=== PATIENT | male | born 1990 | race Caucasian/White ===

== ENCOUNTER 2016-10-10 12:08 | Emergency (ER) | payer OTHER ==
[2016-10-10 12:14] VITALS: BP 147/100
[2016-10-10] MEDS ORDERED: OXYCODONE-ACETAMINOPHEN 5-325 MG TABLET PO ONE (14:12)
--- NOTE | 2016-10-10 14:13 | ER Document Report ---
ED Medical Screen (RME) - General Chief Complaint: Testicular Pain Stated Complaint: GROIN PAIN Time Seen by Provider: 10/10/16 14:12 Mode of Arrival: Ambulatory Information source: Patient TRAVEL OUTSIDE OF THE [place] IN LAST 30 DAYS: No - HPI Patient complains to provider of: Left Testicle pain and swelling Notes: 10/10/16 14:13 Patient is a 26-year-old male who presents to the emergency room complaining of left-sided testicular pain and swelling of 3 days, he denies any dysuria, no penile discharge, no fevers, no injury, no history of similar symptoms previously - Related Data Allergies/Adverse Reactions: No Known Allergies Allergy (Verified 10/10/16 12:11) Past Medical History Renal/ Medical History: Denies: Hx Peritoneal Dialysis Physical Exam - Vital signs Vitals: Temp Pulse Resp BP Pulse Ox 98.1 F 99 16 147/100 H 99 10/10/16 12:11 10/10/16 12:11 10/10/16 12:11 10/10/16 12:11 10/10/16 12:11 Course - Vital Signs Vital signs: Temp Pulse Resp BP Pulse Ox 98.1 F 99 16 147/100 H 99 10/10/16 12:11 10/10/16 12:11 10/10/16 12:11 10/10/16 12:11 10/10/16 12:11
[2016-10-10 14:50] LABS: APPEARANCE,URINE CLOUDY; BILIRUBIN,URINE NEGATIVE (NEGATIVE); CALCIUM OXALATE CRYSTALS,URINE FEW /HPF; GLUCOSE, URINE NEGATIVE (NEGATIVE); KETONES,URINE NEGATIVE (NEGATIVE); LEUKOCYTE ESTERASE,URINE NEGATIVE (NEGATIVE); NITRITE,URINE NEGATIVE (NEGATIVE); PROTEIN,URINE 30 mg/dL (NEGATIVE); UROBILINOGEN,URINE NEGATIVE mg/dL (<2.0)
--- NOTE | 2016-10-10 15:17 | RADIOLOGY REPORT (SQ) ---
EXAM DESCRIPTION: U/S SCROTUM W/DOPPLER COMPLETED DATE/TIME: 10/10/2016 3:07 pm REASON FOR STUDY: testicular pain COMPARISON: None. TECHNIQUE: Static and realtime andrade scale imaging of the scrotum and testes. Selected color Doppler and spectral images recorded to document blood flow. LIMITATIONS: None. FINDINGS: RIGHT: TESTICLE: Normal size. Normal echotexture. Normal blood flow. No mass. EPIDIDYMIS: Normal. HYDROCELE OR VARICOCELE: Small hydrocele containing echogenic debris. HERNIA OR EXTRA-TESTICULAR MASS: No. OTHER: No other significant finding. LEFT: TESTICLE: Normal size. Normal echotexture. Normal blood flow. No mass. EPIDIDYMIS: 6 mm cyst in the head of the epididymis. HYDROCELE OR VARICOCELE: Small hydrocele containing echogenic debris. HERNIA OR EXTRA-TESTICULAR MASS: No. OTHER: No other significant finding. IMPRESSION: SMALL BILATERAL HYDROCELES CONTAINING DEBRIS. SMALL CYST IN THE LEFT EPIDIDYMIS. UNREM ARKABLE TESTICULAR ULTRASOUND. NO EVIDENCE OF TESTICULAR MASS OR TORSION. TECHNICAL DOCUMENTATION: JOB ID: [id number] [employer]- All Rights Reserved
[2016-10-10 16:13] LABS: CHLAM PCR NOT DETECTED (NOT DETECT)
--- NOTE | 2016-10-10 16:25 | ER Document Report ---
HPI - HPI Patient complains to provider of: testicular pain Onset: Other - monday Onset/Duration: Persistent Quality of pain: Achy Severity: Moderate Pain Level: 3 Context: Presents to the emergency department with complaints of testicular pain that started on Monday. Patient reports that he just woke up and his testicles were hurting. He denies trauma. He denies recent trip. He reports he is not very physical since he had knee surgery. He denies fever vomiting but reports some diarrhea. Also reports that when he gave a urine sample here at the hospital it burned a little. Denies penile discharge, denies difficulty voiding. Associated Symptoms: None Exacerbated by: Denies Relieved by: Denies Similar symptoms previously: No Recently seen / treated by doctor: No - DERM Skin Color: Normal Past Medical History - General Information source: Patient - Social History Smoking Status: Current Every Day Smoker Cigarette use (# per day): Yes Chew tobacco use (# tins/day): No Frequency of alcohol use: None Drug Abuse: None Family History: None Patient has suicidal ideation: No Patient has homicidal ideation: No - Medical History Medical History: Negative Renal/ Medical History: Denies: Hx Peritoneal Dialysis Past Surgical History: Reports: Hx Orthopedic Surgery Vertical Provider Document - CONSTITUTIONAL Agree With Documented VS: Yes Exam Limitations: No Limitations General Appearance: WD/WN, No Apparent Distress - INFECTION CONTROL TRAVEL OUTSIDE OF THE [place] IN LAST 30 DAYS: No - HEENT HEENT: Atraumatic, Normocephalic - NECK Neck: Normal Inspection, Supple - RESPIRATORY Respiratory: Breath Sounds Normal, No Respiratory Distress O2 Sat by Pulse Oximetry: 99 - CARDIOVASCULAR Cardiovascular: Regular Rate, Regular Rhythm - GI/ABDOMEN Gastrointestinal: Abdomen Soft, Abdomen Non-Tender - REPRODUCTIVE Male Genitalia: Normal Inspection - left testical slightly larger than right, no erythema, no warmth - MUSCULOSKELETAL/EXTREMETIES Musculoskeletal/Extremeties: MAEW, FROM - NEURO Level of Consciousness: Awake, Alert, Appropriate Motor/Sensory: No Motor Deficit - DERM Integumentary: Warm, Dry Course - Re-evaluation Re-evalutation: 10/10/16 16:31 STD cultures neg. hematuria noted. pt provided with written information regarding epididymitis. - Vital Signs Vital signs: Temp Pulse Resp BP Pulse Ox 98.1 F 99 16 147/100 H 99 10/10/16 12:11 10/10/16 12:11 10/10/16 12:11 10/10/16 12:11 10/10/16 12:11 - Laboratory Laboratory results interpreted by me: 10/10/16 14:15 Urine Protein 30 H Urine Blood LARGE H - Diagnostic Test Radiology reviewed: Image reviewed, Reports reviewed - epididymitis Discharge - Discharge Clinical Impression: Epididymitis, Hematuria, Elevated blood pressure reading Condition: Stable Disposition: HOME, SELF-CARE Instructions: Epididymitis ([facility]), Anti-Inflammatory Medication ([facility]), Doxycycline ([facility]), Ibuprofen (General) ([facility]) Additional Instructions: *You have been evaluated for testicular pain, epididymitis, hematuria, elevated blood pressure reading * scrotal elevation, rest from athletic activity, warm baths *Take medication as prescribed *Follow up with a primary care provider within one week for recheck *Return to ED for worsening condition, changes, needs Monitor your blood pressure. Your blood pressure was elevated today. This may be because you were anxious, in pain or because you need medication. It is important to follow up with your primary care provider for full evaluation. Prescriptions: Doxycycline Monohydrate [Monodox] 100 mg PO BID #20 capsule Ibuprofen [Motrin 800 mg Tablet] 800 mg PO TID #30 tablet Forms: Elevated Blood Pressure
== END 2016-10-10 17:25 | disposition home or self-care (01) ==
LOC: ER 12:08
DX: N45.1 Epididymitis (principal); R31.9 Hematuria, unspecified; R03.0 Elevated blood-pressure reading, without diagnosis of hypertension; F17.210 Nicotine dependence, cigarettes, uncomplicated
CPT/HCPCS: 76870; 81001; 87491; 87591; 93976; 99284